=== PATIENT | female | born 1950 | race Caucasian/White ===

== ENCOUNTER 2016-11-27 11:35 | Emergency (ER) | payer BC, MEDICARE ==
[~2016-11-27] VITALS: Ht 157.5 cm; Wt 69.9 kg
--- NOTE | 2016-11-27 11:50 | NUR ---
DR BUCKNER AT THE BEDSIDE FOR EVAL AND EXAM.
[2016-11-27 13:20] VITALS: BP 112/60
--- NOTE | 2016-11-27 13:23 | NUR ---
Patient discharged to home in stable conditon. Written and verbal after care instructions given. Patient verbalizes understanding of instructions.
== END 2016-11-27 13:22 | disposition home or self-care (01) ==
LOC: ER 11:35
DX: S92.352A Displaced fracture of fifth metatarsal bone, left foot, initial encounter for closed fracture (principal); W22.8XXA Striking against or struck by other objects, initial encounter; Y93.89 Activity, other specified; Y92.9 Unspecified place or not applicable; Y99.9 Unspecified external cause status
CPT/HCPCS: 73610; 73630; 99284; A4663